=== PATIENT | male | born 1960 | race Caucasian/White ===

== ENCOUNTER 2017-12-16 18:44 | Emergency (ER) | payer MEDICARE, OTHER ==
[2017-12-16] MEDS ORDERED: IBUPROFEN 200 MG TAB PO ONE (19:24)
[2017-12-16] MEDS ORDERED: HYDROcodone 7.5MG/APAP 325MG 1 EA TAB PO ONE (19:24)
[2017-12-16 19:49] VITALS: TEMP 98.5; O2SAT 97
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
[2017-12-16 20:43] VITALS: BP 154/77
== END 2017-12-16 20:42 | disposition home or self-care (01) ==
LOC: ER 18:44
DX: S20.212A Contusion of left front wall of thorax, initial encounter (principal); E11.9 Type 2 diabetes mellitus without complications; F17.200 Nicotine dependence, unspecified, uncomplicated; Y04.2XXA Assault by strike against or bumped into by another person, initial encounter; Y92.9 Unspecified place or not applicable

== ENCOUNTER → 2020-06-27 | Outpatient (CLI) | payer OTHER, MEDICARE | LOC: GMA MATASK 10:53 | PROVIDERS: ATTEND Family Medicine | DX: N39.8 Other specified disorders of urinary system (principal); R86.9 Unspecified abnormal finding in specimens from male genital organs ==